=== PATIENT | male | born 1955 | race Caucasian/White ===

== ENCOUNTER 2019-11-15 00:02 | Outpatient (CLI) | payer BC, SELFPAY ==
[2019-11-15 17:26] LABS: SARS-CoV-2 RNA PCR Negative
== END 2019-11-15 00:03 | disposition home or self-care (01) ==
LOC: ANHCOVIDDT 00:03
PROVIDERS: PCP Internal Medicine; Visit Provider Internal Medicine Gastroenterology
DX: Z01.812 Encounter for preprocedural laboratory examination (principal); Z20.828 Contact with and (suspected) exposure to other viral communicable diseases
CPT/HCPCS: 87635; C9803; U0003

== ENCOUNTER 2019-11-18 00:03 | Day surgery (SDC) | payer BC, SELFPAY ==
[2019-11-08 13:36] VITALS: BMI 29.5
[2019-11-18 08:12] VITALS: BP 149/93; PULSE 81; RESP 16; TEMP 36.6; O2SAT 98
[2019-11-18] MEDS: LACTATED RINGERS 1,000 ML 150 ML IV CONT (08:18)
--- NOTE | 2019-11-18 08:42 | WPDANESEPPF ---
Anes - Initial Pre Proc Eval Procedure: Operation Date: 11/18/19 09:00 Proposed Procedures p Screening Colonoscopy - Zach Edgar MD Date/Time: 11/18/19 08:42 Surgeon: Zach Edgar MD Pre Op Diagnosis: neoplasm Screening, Hx of Polyps Patient Data Age: 64 Gender: M Height: 6 ft 3 in Weight: 108.1 kg Last Vital Signs Temp 97.8 F 11/18/19 08:12 Pulse 81 11/18/19 08:12 Resp 16 11/18/19 08:12 BP 149/93 H 11/18/19 08:12 Pulse Ox 98 11/18/19 08:12 Allergies Allergy/AdvReac Type Severity Reaction Status Date / Time No Known Allergies Allergy Verified 11/18/19 08:11 Home Medications Medication Instructions Recorded Confirmed Type fenofibrate nanocrystallized 48 mg 48 mg PO DAILY #90 tablet 05/13/19 11/08/19 Rx tablet glimepiride 4 mg tablet 4 mg PO QAM 05/13/19 11/08/19 History lisinopril 20 mg tablet 20 mg PO DAILY #90 tablet 05/13/19 11/08/19 Rx lovastatin 20 mg tablet 20 mg PO QPM #90 tablet 05/13/19 11/08/19 Rx naproxen 500 mg tablet 500 mg PO BID PRN 05/13/19 11/08/19 History pioglitazone 30 mg tablet 30 mg PO DAILY #90 tablet 05/13/19 11/08/19 Rx lisinopril 20 1 tablet PO DAILY #90 tablet 08/05/19 11/08/19 Rx mg-hydrochlorothiazide 25 mg tablet metformin 500 mg PO DAILY 11/08/19 11/08/19 History Patient hx anesthesia problems: none Family hx anesthesia problems: none PMFSH Past Medical History Medical History (Updated 11/18/19 @ 08:35 by Sina Velez MD) Essential (primary) hypertension Mixed hyperlipidemia Type 2 diabetes mellitus without complications Social History Social History Smoking status: Never smoker Second hand tobacco smoke exposure: No Alcohol intake: current Anes - Eval Final PreProcedure Day of Procedure 11/18/19 08:42 Patient weight: overweight Heart: regular rate and rhythm Lungs: clear to auscultation Airway: Mallampati scale class II Neurological: alert and oriented Last oral intake: >/= 8 hours ASA classification: III Emergent: no Anesthetic plan: proceed Anesthesia type and monitoring: general GIVS and standard monitoring Informed Consent: The patient's anesthetic plan and its attendant risks and benefits were discussed with the patient/family/POA. Questions were solicited and answers provided to the satisfaction of the patient/family/POA.
--- NOTE | 2019-11-18 08:43 | PM.HPGS ---
History of Present Illness History of Present Illness Consent: Risks, benefits, and alternatives have been discussed and questions answered. Patient agrees to proceed with procedure. Chief complaint: neoplasm Screening, Hx of Polyps Narrative: Roman Pozo is a 64 year old W male referred for screening colonoscopy secondary history of colonic polyps and a family history of colon cancer in his mother diagnosed at age 50. Patient is asymptomatic. Last colonoscopy was 5 years ago who has a history of adenomatous polyps. [facility] Past Medical History Medical History Essential (primary) hypertension Mixed hyperlipidemia Type 2 diabetes mellitus without complications Family History Family History Mother Family history of chronic obstructive pulmonary disease Social History Social History Smoking status: Never smoker Second hand tobacco smoke exposure: No Alcohol intake: current Meds Home Medications and Allergies Home Medications Medication Instructions Recorded Confirmed Type fenofibrate nanocrystallized 48 mg 48 mg PO DAILY #90 tablet 05/13/19 11/08/19 Rx tablet glimepiride 4 mg tablet 4 mg PO QAM 05/13/19 11/08/19 History lisinopril 20 mg tablet 20 mg PO DAILY #90 tablet 05/13/19 11/08/19 Rx lovastatin 20 mg tablet 20 mg PO QPM #90 tablet 05/13/19 11/08/19 Rx naproxen 500 mg tablet 500 mg PO BID PRN 05/13/19 11/08/19 History pioglitazone 30 mg tablet 30 mg PO DAILY #90 tablet 05/13/19 11/08/19 Rx lisinopril 20 1 tablet PO DAILY #90 tablet 08/05/19 11/08/19 Rx mg-hydrochlorothiazide 25 mg tablet metformin 500 mg PO DAILY 11/08/19 11/08/19 History Allergies Allergy/AdvReac Type Severity Reaction Status Date / Time No Known Allergies Allergy Verified 11/18/19 08:11 Vital Signs Vital Signs - 24 hr 11/18/19 08:12 Temperature 36.6 C Pulse Rate 81 Respiratory Rate 16 Blood Pressure 149/93 H Pulse Oximetry 98 Exam Const: Orientation/consciousness: patient oriented x3 Resp: Auscultation: clear to auscultation bilaterally Cardio: Rate: regular rate Rhythm: regular rhythm Heart sounds: no murmurs GI: GI Palp: Yes Soft to palpation, No Tenderness to palpation present (GI), Yes No hepatosplenomegaly present and No Palpable mass present Auscultation: normal bowel sounds Neuro: General: patient oriented x3 and no focal motor deficits Extrem: General: no pedal edema Assessment and Plan Additional Plan Screening colonoscopy in high risk patient with personal history of polyps and family history of colon cancer in his mother
[2019-11-18 08:50] LABS: Glucose Point of Care 124 (65-105)
[2019-11-18 09:52] VITALS: BP 92/59; PULSE 70; RESP 20; O2SAT 95
[2019-11-18 10:02] VITALS: BP 97/62; PULSE 66; RESP 16; O2SAT 99
[2019-11-18 10:12] VITALS: BP 105/71; PULSE 58; RESP 16; O2SAT 98
== END 2019-11-18 10:22 | disposition home or self-care (01) ==
PROVIDERS: PCP Internal Medicine; Visit Provider Internal Medicine Gastroenterology
PROC: 0DJD8ZZ Inspection of Lower Intestinal Tract, Via Natural or Artificial Opening Endoscopic (ICD-10-PCS; CPT 45378; principal; 2019-11-18 09:00)
DX: Z12.11 Encounter for screening for malignant neoplasm of colon (principal); K64.4 Residual hemorrhoidal skin tags; Z86.010 Personal history of colon polyps; Z80.0 Family history of malignant neoplasm of digestive organs; I10 Essential (primary) hypertension; E11.9 Type 2 diabetes mellitus without complications; E78.2 Mixed hyperlipidemia; Z79.84 Long term (current) use of oral hypoglycemic drugs
CPT/HCPCS: 45378; J2001; J2704; J7120